=== PATIENT | male | born 1970 ===

== ENCOUNTER 2024-02-18 22:04 | Emergency (ER) | payer OTHER ==
[2024-02-18] MEDS ORDERED: Acetaminophen/Oxycodone 5 MG/325 MG TABLET PO ONE (22:10)
[2024-02-18] MEDS ORDERED: ACETAMINOPHEN 325 MG TAB PO ONE (22:20)
[2024-02-19] MEDS ORDERED: MELOXICAM15 MG PO (00:27)
== END 2024-02-19 00:33 | disposition home or self-care (01) ==
LOC: ED 22:04
DX: S00.81XA Abrasion of other part of head, initial encounter (principal); M54.2 Cervicalgia; V80.010A Animal-rider injured by fall from or being thrown from horse in noncollision accident, initial encounter; Y93.89 Activity, other specified; Y92.89 Other specified places as the place of occurrence of the external cause; Y99.8 Other external cause status